=== PATIENT | female | born 1990 | race Caucasian/White ===

== ENCOUNTER → 2020-07-21 | Outpatient (CLI) | payer OTHER ==
--- NOTE | 2020-07-21 14:47 | Diagnostic Imaging Report ---
PROCEDURE: US Gallbladder. TECHNIQUE: Multiple real-time grayscale images were obtained over the right upper quadrant in various projections. INDICATION: Right upper quadrant pain. FINDINGS: Liver is normal in size. There are no focal liver lesions. There is hepatopedal flow in the main portal vein. There is no cholelithiasis, gallbladder wall thickening or pericholecystic fluid. There is no biliary ductal dilatation. Common bile duct measures 4 mm. The pancreas is unremarkable. Aorta is nonaneurysmal. IVC is patent. Right kidney is normal. No ascites. IMPRESSION: Unremarkable right upper quadrant ultrasound. Dictated by: Dictated on workstation # [id number]
== END ==
LOC: RAD 09:46
PROVIDERS: ATTEND Nurse Practitioner Family
DX: R10.11 Right upper quadrant pain (principal)
CPT/HCPCS: 76705